=== PATIENT | male | born 1990 | race Caucasian/White ===

== ENCOUNTER 2024-02-15 17:46 | Emergency (ER) | payer SELFPAY | END 2024-02-15 18:45 | disposition home or self-care (01) | LOC: MADERS 17:46 | DX: S30.860A Insect bite (nonvenomous) of lower back and pelvis, initial encounter (principal); J06.9 Acute upper respiratory infection, unspecified; L30.9 Dermatitis, unspecified; F17.210 Nicotine dependence, cigarettes, uncomplicated; W57.XXXA Bitten or stung by nonvenomous insect and other nonvenomous arthropods, initial encounter | CPT/HCPCS: 87081; 87400; 87426; 87430; 99284 ==